=== PATIENT | male | born 1965 | race Caucasian/White ===

== ENCOUNTER 2021-05-22 23:51 | Emergency (ER) | payer MEDICARE, OTHER ==
[~2021-05-22] VITALS: Ht 180.3 cm; Wt 90.7 kg
[2021-05-23] MEDS ORDERED: SEROQUEL200 MG PO (00:04)
[2021-05-23] MEDS ORDERED: INDOMETHACIN50 MG PO (00:14)
== END 2021-05-23 00:25 | disposition home or self-care (01) ==
LOC: ED 23:51
DX: M10.9 Gout, unspecified (principal); I10 Essential (primary) hypertension; Z87.891 Personal history of nicotine dependence; Z79.899 Other long term (current) drug therapy
CPT/HCPCS: 99283

== ENCOUNTER 2021-07-05 08:22 | Emergency (ER) | payer MEDICARE ==
[~2021-07-05] VITALS: Ht 180.3 cm; Wt 90.7 kg
[~2021-07-05 08:22] MED LIST: INDOMETHACIN50 MG PO; SEROQUEL200 MG PO
[2021-07-05] MEDS ORDERED: QUETIAPINE FUM100 MG PO (08:58)
[2021-07-05] MEDS ORDERED: TIZANIDINE HCL4 MG PO (08:58)
[2021-07-05] MEDS ORDERED: INDOMETHACIN50 MG PO (08:58)
== END 2021-07-05 09:34 | disposition home or self-care (01) ==
LOC: ED 08:22
DX: M54.42 Lumbago with sciatica, left side (principal); M10.9 Gout, unspecified; I10 Essential (primary) hypertension; Z87.891 Personal history of nicotine dependence; Z79.899 Other long term (current) drug therapy
CPT/HCPCS: 99283

== ENCOUNTER 2021-07-20 22:27 | Emergency (ER) | payer MEDICARE ==
[~2021-07-20] VITALS: Ht 180.3 cm; Wt 90.7 kg
[~2021-07-20 22:27] MED LIST changes: +QUETIAPINE FUM100 MG PO; +TIZANIDINE HCL4 MG PO
--- OUTSIDE RECORDS SUMMARY | 2021-07-20 22:34 | XMS ---
PreManage Notification: LIBIA BONILLA Security Investigative Assistant Events No recent Security Events currently on file CRITERIA MET - [facility] - 2 Visits in 30 Days CARE PROVIDERS There are no care providers on record at this time. Marko has no Care Guidelines for this patient. Ean VISIT COUNT (12 MO.) 3 [facility]3][place] [facility] TOTAL 3 NOTE: Visits indicate total known visits. ED/C VISIT TRACKING (12 MO.) [facility] COMPLAINT: - LT SIDE BACK PAIN RADIATES TO LT LEG 07/05/2021 08:23 [facility] TYPE: Emergency COMPLAINT: - HIPS PAIN DIAGNOSES: - Essential (primary) hypertension - Personal history of nicotine dependence - LOW BACK PAIN, UNSPECIFIED - Gout, unspecified - Lumbago with sciatica, left side - Other predatory animal exterminator (current) drug therapy 05/22/2021 23:52 [facility] [place] TYPE: Emergency COMPLAINT: - LT KNEE PAIN DIAGNOSES: - Gout, unspecified - Personal history of nicotine dependence - Essential (primary) hypertension - Other half-way (current) drug therapy - Pain in left knee INPATIENT VISIT TRACKING (12 MO.) No inpatient visits to display in this time frame [email or web address]
== END 2021-07-21 01:00 | disposition home or self-care (01) ==
LOC: ED 22:27
DX: M54.42 Lumbago with sciatica, left side (principal); M54.41 Lumbago with sciatica, right side; M10.9 Gout, unspecified; I10 Essential (primary) hypertension; E11.9 Type 2 diabetes mellitus without complications; G47.30 Sleep apnea, unspecified; Z87.891 Personal history of nicotine dependence; Z79.899 Other long term (current) drug therapy
CPT/HCPCS: 99283

== ENCOUNTER 2022-04-28 15:08 | Emergency (ER) | payer MEDICARE ==
[~2022-04-28] VITALS: Ht 180.3 cm; Wt 90.7 kg
[2022-04-28] MEDS ORDERED: INDOMETHACIN50 MG PO ×2 (15:33→15:34)
== END 2022-04-28 16:12 | disposition home or self-care (01) ==
LOC: ED 15:08
DX: M10.9 Gout, unspecified (principal); I10 Essential (primary) hypertension; E11.9 Type 2 diabetes mellitus without complications; G47.30 Sleep apnea, unspecified; Z87.891 Personal history of nicotine dependence; Z79.899 Other long term (current) drug therapy
CPT/HCPCS: 99283